=== PATIENT | male | born 1980 | race Caucasian/White ===

== ENCOUNTER 2020-07-10 15:42 | Inpatient (IN) | payer BC ==
[2020-07-10] MEDS ORDERED: LORazepam 2 MG/ML INJ IV PRN ×3 (16:08)
[2020-07-10] MEDS ORDERED: THIAMINE 100 MG/ML 2 ML VIAL IM STA (16:08)
[2020-07-10] MEDS ORDERED: SODIUM CHLORIDE 0.9% 1,000 ML IV ONE (16:08)
[2020-07-10] MEDS ORDERED: ACETAMINOPHEN TAB 325 MG TAB PO STA (16:17)
[2020-07-10] MEDS: THIAMINE 100 MG TAB PO SCH (16:29)
--- NOTE | 2020-07-10 16:56 | CT ---
EXAMINATION TYPE: CT brain temo baig DATE OF EXAM: 07/10/2020 COMPARISON: None HISTORY: Seizure, head injury CT DLP: 1543.7 mGycm Automated exposure control for dose reduction was used. The ventricles and sulci appear normal. There is no mass effect nor midline shift. There is no sign o f intracranial hemorrhage. There is some scalp soft tissue swelling over the right lateral frontal jose ne with laceration deformity. Skull base is intact. Cervical vertebra have normal alignment. There is some narrowing at C5-6 disc space with spurring. Fa cet joints are intact. There is mild cervical hypertrophic facet arthropathy on the left side at C4-5 . There is normal aeration of the mastoid sinuses. IMPRESSION: Mild spondylotic changes in the cervical spine. No fracture. Negative CT scan of the brain. Right frontal scalp hematoma.
[2020-07-10 16:58] LABS: Basophils # (A) 0.1 k/uL (0-0.2); Basophils % (A) 0 %; Eosinophils # (A) 0.2 k/uL (0-0.7); Eosinophils % (A) 1 %; HCT 46.4 % (39.0-53.0); HGB 16.4 gm/dL (13.0-17.5); Lymphocytes # (A) 1.5 k/uL (1.0-4.8); Lymphocytes % (A) 11 %; MCH 36.4 pg (25.0-35.0); MCHC 35.4 g/dL (31.0-37.0); MCV 102.9 fL (80.0-100.0); Macrocytosis Slight; Mean Platelet Volume 7.3; Monocytes # (A) 0.6 k/uL (0-1.0); Monocytes % (A) 4 %; Neutrophils # (A) 11.2 k/uL (1.3-7.7); Neutrophils % (A) 82 %; Platelet Count 391 k/uL (150-450); RBC 4.51 m/uL (4.30-5.90); RDW 13.1 % (11.5-15.5); WBC 13.7 k/uL (3.8-10.6)
[2020-07-10 17:08] LABS: ALT 97 U/L (4-49); AST 53 U/L (17-59); African American GFR (CKD) >90 (>60 ml/min/1.73 sqM); Albumin 4.4 g/dL (3.5-5.0); Alcohol <10 mg/dL; Alkaline Phosphatase 101 U/L (38-126); Anion Gap 5 mmol/L; Blood Urea Nitrogen 9 mg/dL (9-20); Calcium 10.3 mg/dL (8.4-10.2); Carbon Dioxide 30 mmol/L (22-30); Chloride 102 mmol/L (98-107); Glucose 102 mg/dL (74-99); Magnesium 1.9 mg/dL (1.6-2.3); Non-African American GFR(CKD) >90 (>60 ml/min/1.73 sqM); Potassium 4.7 mmol/L (3.5-5.1); Sodium 137 mmol/L (137-145); Total Bilirubin 0.4 mg/dL (0.2-1.3); Total Protein 7.1 g/dL (6.3-8.2)
[2020-07-10] MEDS ORDERED: LIDOCAINE 1% INJ 10MG/ML (20 ML MDV) SQ ONE (17:19)
--- NOTE | 2020-07-10 18:05 | ED ---
Seizure HPI - General Chief Complaint: Seizure Stated Complaint: seizure,fall Source: EMS Mode of arrival: EMS Limitations: no limitations - History of Present Illness Initial Comments: Patient is a 40-year-old male presents emergency department from [facility]. It was reported that the patient had a seizure outside of the facility. He has had a history of alcohol abuse. Normally drinks a pint every other day. Patient has been at [facility] for the past 4 days and states his last drink was just previous to entering rehab. He has never attempted sobriety before. Reports that here members being inside the facility today. They do have him on BuSpar for withdrawals. States that yesterday this medication made him dizzy. Reportedly was given this medication again today. He does not remember walking outside that at some point the patient did, likely to smoke a cigarette. It was reported that the patient began seizing and fell to the ground. Seizure activity lasted several minutes. The patient did hit his head on gravel. EMS arrived and found the patient postictal. He did not bite his tongue. There is no loss of bowel or bladder function. Patient denies previous history of seizure disorder. No history of alcohol withdrawal seizures. Patient is c urrently admitting to headache. Large laceration noted to the results of the patient's head. Denies any neck pain. No visual changes. Denies any numbness, tingling or weakness in his upper or lower extremities. Other alleviating, precipitating modifying factors - Related Data Home Medications Medication Instructions Recorded Confirmed Buspar (Unknown Strength) 1 dose PO BID 07/10/20 07/10/20 Dextroamphetamine/Amphetamine 20 mg PO TID 07/10/20 07/10/20 [Adderall] buPROPion [Wellbutrin] 150 mg PO BID 07/10/20 07/10/20 clonazePAM [KlonoPIN] 0.5 mg PO DAILY PRN 07/10/20 07/10/20 Allergies Allergy/AdvReac Type Severity Reaction Status Date / Time No Known Allergies Allergy Unverified 07/10/20 18:02 Review of Systems ROS Statement: Those systems with pertinent positive or pertinent negative responses have been documented in the HPI. ROS Other: All systems not noted in ROS Statement are negative. Past Medical History Past Medical History: No Reported History History of Any Multi-Drug Resistant Organisms: None Reported Past Surgical History: Cholecystectomy Additional Past Surgical History / Comment(s): left wrist surgery, right hand surgery, Past Psychological History: ADD/ADHD, Anxiety Smoking Status: Current every day smoker Past Alcohol Use History: Occasional Past Drug Use History: Marijuana General Exam Limitations: no limitations Course Vital Signs 07/10/20 07/10/20 07/10/20 15:49 17:01 17:46 Temperature 98.6 F Pulse Rate 98 97 82 Respiratory 18 18 16 Rate Blood Pressure 149/95 143/91 134/86 O2 Sat by Pulse 95 98 95 Oximetry Medical Decision Making - Medical Decision Making Upon arrival patient's placed into room 8. A thorough history of physical exam was performed. Patient is immediately placed on serial protocol. Laboratory studies are obtained and the patient went for CT of his head and cervical spine. Laboratory studies are reviewed. CT demonstrates no acute intracranial findings. No acute cervical fractures. Patient's right temporal laceration is repaired using 5, 6-0 simple interrupted nylon sutures. There was good approximation of the skin. Patient is instructed that he needs to have the sutures removed in 7 days. I did recommend hospitalization as the patient cannot go back to rehab because of this withdrawal seizure. We'll keep the patient overnight on CIWA protocol. Patient has had no further seizure activity in the emergency department. Patient did agree to this and was transported to floor in stable condition - Lab Data Result diagrams: 07/10/20 Unknown 07/10/20 17:02 Lab Results 07/10/20 Range/Units 17:02 Sodium 137 (137-145) mmol/L Potassium 4.7 (3.5-5.1) mmol/L Chloride 102 (98-107) mmol/L Carbon Dioxide 30 (22-30) mmol/L Anion Gap 5 mmol/L BUN 9 (9-20) mg/dL Creatinine 0.88 (0.66-1.25) mg/dL Est GFR (CKD-EPI)AfAm >90 (>60 ml/min/1.73 sqM) Est GFR (CKD-EPI)NonAf >90 (>60 ml/min/1.73 sqM) Glucose 102 H (74-99) mg/dL Calcium 10.3 H (8.4-10.2) mg/dL Magnesium 1.9 (1.6-2.3) mg/dL Total Bilirubin 0.4 (0.2-1.3) mg/dL AST 53 (17-59) U/L ALT 97 H (4-49) U/L Alkaline Phosphatase 101 (38-126) U/L Total Protein 7.1 (6.3-8.2) g/dL Albumin 4.4 (3.5-5.0) g/dL Serum Alcohol <10 mg/dL - EKG Data EKG Comments: EKG demonstrates a normal sinus rhythm with ventricular rate of 89. CO interval 174. QRS 94. QTC 420. No acute ST segment elevations or depressions concerning for ischemic changes Disposition Clinical Impression: Alcohol withdrawal seizure Disposition: ADMITTED IP TO THIS HOSP Condition: Stable Is patient prescribed a controlled substance at d/c from ED?: No Decision to Admit Reason: Admit from EC Decision Date: 07/10/20 Decision Time: 18:05
[2020-07-10] MEDS ORDERED: NALOXONE 0.4 MG/ML 1 ML VIAL IV PRN (18:07)
[2020-07-10] MEDS ORDERED: HYDROcodone/APAP 7.5-325MG 1 EACH TAB PO ONE (18:10)
[2020-07-10] MEDS: IBUPROFEN 400 MG TAB PO PRN (21:50)
[2020-07-10] MEDS: NICOTINE 21MG/24HR PATCH TRANSDERM SCH (21:50)
[2020-07-10] MEDS: buPROPion 75 MG TAB PO SCH (21:51)
[2020-07-10] MEDS: SODIUM CHLORIDE 0.9% 1,000 ML IV SCH (21:51)
--- NOTE | 2020-07-11 00:28 | P.HPIM ---
History of Present Illness H&P Date: 07/10/20 Chief Complaint: seizure 40 year old male with alcohol dependance and abuse patient comes in from [facility] , where he was admitted one week ago , for alcohol abuse, his last alcohol drink he claims to be more than 10 days ago. he claims that he had one episode of seizure in the past about 1 year ago, and was thought to be due to a medicine that he used to take for headaches Ten[place]. which he stopped then , but he was taking again now for his headaches. he denies having withdrawal symptoms from alcohol while at [facility] patient does not recall the event, he regained consciousness en route with EMS. denies loss of bladder or bowel control, denies tongue biting. but it seems that he felll from standing position and has sustained a head injury and cut to his scalp. patient denies any drug abuse, but admits to alcohol abuse. he admits to smoking cigarettes. he denies any fever, chills, URI symptoms , GI changes, or urinary symptoms. he currently denies any vision changes, or focal neuro deficits. in the ED blood work showed macrocytosis and mild hypercalcemia, leukocytosis , and slightly elevated liver enzymes. CT of the head showd no acute intracranial pathology, except for the scalp hematoma Review of Systems Pertinent positives as noted in HPI. All other systems were reviewed and are negative Past Medical History Past Medical History: No Reported History, Seizure Disorder Additional Past Medical History / Comment(s): hx of a seizure one year ago History of Any Multi-Drug Resistant Organisms: None Reported Past Surgical History: Cholecystectomy Additional Past Surgical History / Comment(s): left wrist surgery, right hand surgery Past Anesthesia/Blood Transfusion Reactions: No Reported Reaction Past Psychological History: ADD/ADHD, Anxiety Smoking Status: Current every day smoker Past Alcohol Use History: Occasional Additional Past Alcohol Use History / Comment(s): one pack a day Past Drug Use History: Marijuana - Past Family History family Family Medical History: No Reported History Medications and Allergies Home Medications Medication Instructions Recorded Confirmed Type Buspar (Unknown Strength) 1 dose PO BID 07/10/20 07/10/20 History Dextroamphetamine/Amphetamine 20 mg PO TID 07/10/20 07/10/20 History [Adderall] buPROPion [Wellbutrin] 150 mg PO BID 07/10/20 07/10/20 History clonazePAM [KlonoPIN] 0.5 mg PO DAILY PRN 07/10/20 07/10/20 History Allergies Allergy/AdvReac Type Severity Reaction Status Date / Time No Known Allergies Allergy Unverified 07/10/20 18:02 Physical Exam Vitals: Vital Signs Temp Pulse Pulse Resp BP BP Pulse Ox 07/10/20 20:24 92 18 154/86 95 07/10/20 17:46 82 16 134/86 95 07/10/20 17:01 97 18 143/91 98 07/10/20 15:49 98.6 F 98 18 149/95 95 Intake and Output 07/10/20 07/10/20 07/10/20 06:59 14:59 22:59 Other: Weight 104.326 kg Constitutional: No acute distress, conversant, pleasant Eyes: Anicteric sclerae, moist conjunctiva, Pupils equal round reactive to light ENMT: NC/ wound over the right adventist area 2.5 inches s/p suturing no swelling or bruising Oropharynx clear, no erythema, or exudates Neck: Supple, FROM, no masses, or JVD No carotid bruits No thyromegaly Lungs: Clear to auscultation Clear to percussion Normal respiratory effort, no accessory muscle use Cardiovascular: Heart regular in rate and rhythm, No murmurs, gallops, or rubs No peripheral edema Abdominal: Soft Nontender, no guarding, rebound or rigidity Abdomen moving with respiration Normoactive bowel sounds No hepatomegaly, No splenomegaly No palpable mass No abdominal wall hernia noted Skin: Normal temperature, tone, texture, turgor No induration No subcutaneous nodules No rash, lesions No ulcers Extremities: No digital cyanosis No clubbing Pedal pulses intact and symmetrical Radial pulses intact and symmetrical No calf tenderness Psychiatric: Alert and oriented to person, place and time Appropriate affect fair judgement Neuro Muscles Strength 5/5 in all 4 extremities Sensation to light touch grossly present throughout Cranial nerves II-XII grossly intact No focal sensory deficits Lymphatics: no palpable cervical or supraclavicular , or inguinal lymph nodes Results CBC & Chem 7: 07/10/20 Unknown 07/10/20 17:02 Labs: Abnormal Lab Results - Last 24 Hours (Table) 07/10/20 07/10/20 Range/Units 17:02 Unknown WBC 13.7 H (3.8-10.6) k/uL MCV 102.9 H (80.0-100.0) fL MCH 36.4 H (25.0-35.0) pg Neutrophils # 11.2 H (1.3-7.7) k/uL Glucose 102 H (74-99) mg/dL Calcium 10.3 H (8.4-10.2) mg/dL ALT 97 H (4-49) U/L Thrombosis Risk Factor Assmnt - Choose All That Apply Any of the Below Risk Factors Present?: No Other Risk Factors: No Other congenital or acquired thrombophilia - If yes, enter type in comment: No Thrombosis Risk Factor Assessment Level: Very Low Risk Assessment and Plan Assessment: seizure episode head injury with wound over the right adventist secondary to falling due to seizure alcohol abuse mild acute alcoholic hepatitis headache seizure precautions EEG neuro consult counseled to avoid driving or running heavy machinery , or to swimming without supervision , per [place] state law pain control wound care, remove sutures in 10 days monitor for alcohol withdrawal syndrome macrocytosis without anemia secondary to alcohol abuse thiamine counseled to abstainfrom alcohol leukocytosis without focus of infection , most likely reactive monitor for any fever mild hypercalcemia repeat BMP in AM CODE STATUS:full code DVT prophylaxis: mechanical Discussed with: Patient, ER, RN Anticipated length of stay < than [address]: [facility] A total of 65 minutes was spent on the care of this complex patient more than 50% of the time was spent in counseling and care coordination.
[2020-07-11] MEDS: SODIUM CHLORIDE 0.9% 1,000 ML IV SCH ×4 (03:51→23:38)
[2020-07-11] MEDS: HYDROcodone/APAP 5-325MG 1 EACH TAB PO PRN ×2 (03:57)
[2020-07-11] MEDS: THIAMINE 100 MG TAB PO SCH ×2 (06:53→16:27)
[2020-07-11 07:25] LABS: Basophils # (A) 0.1 k/uL (0-0.2); Basophils % (A) 1 %; Eosinophils # (A) 0.2 k/uL (0-0.7); Eosinophils % (A) 2 %; HCT 44.5 % (39.0-53.0); HGB 15.2 gm/dL (13.0-17.5); Lymphocytes # (A) 3.2 k/uL (1.0-4.8); Lymphocytes % (A) 29 %; MCH 35.3 pg (25.0-35.0); MCV 103.6 fL (80.0-100.0); Macrocytosis Slight; Mean Platelet Volume 7.2; Monocytes # (A) 0.6 k/uL (0-1.0); Monocytes % (A) 6 %; Neutrophils # (A) 6.9 k/uL (1.3-7.7); Neutrophils % (A) 62 %; Platelet Count 330 k/uL (150-450); RDW 13.1 % (11.5-15.5); WBC 11.2 k/uL (3.8-10.6)
[2020-07-11 07:44] LABS: African American GFR (CKD) >90 (>60 ml/min/1.73 sqM); Anion Gap 2 mmol/L; Blood Urea Nitrogen 6 mg/dL (9-20); Carbon Dioxide 30 mmol/L (22-30); Chloride 106 mmol/L (98-107); Glucose 94 mg/dL (74-99); Non-African American GFR(CKD) >90 (>60 ml/min/1.73 sqM); Sodium 138 mmol/L (137-145)
[2020-07-11] MEDS: buPROPion 75 MG TAB PO SCH ×2 (09:14→20:51)
[2020-07-11] MEDS: IBUPROFEN 400 MG TAB PO PRN ×2 (09:28→16:26)
[2020-07-11] MEDS: NICOTINE 21MG/24HR PATCH TRANSDERM SCH (09:28)
[2020-07-11] MEDS: clonazePAM 0.5 MG TAB PO PRN ×2 (09:28→20:51)
--- NOTE | 2020-07-11 10:25 | P.PN ---
Subjective Progress Note Date: 07/11/20 Principal diagnosis: CC: Seizure Patient is complaining of headache at the site of his laceration. He denies any alcohol withdrawal symptoms. Objective - Vital Signs Vital signs: Vital Signs Temp 98.6 F 07/10/20 15:49 Pulse 75 07/11/20 03:26 Resp 16 07/11/20 03:26 BP 138/72 07/11/20 03:26 Pulse Ox 96 07/11/20 03:26 Intake & Output 07/10/20 07/11/20 07/11/20 18:59 06:59 18:59 Weight 104.326 kg 103.5 kg Other: Voiding Method Toilet # Voids 1 - Exam General examination - Alert and Oriented 3 in NAD HEENT: Laceration on the right temporal head with sutures Heart - + S1S2 no murmurs Lungs - Clear to auscultation Abdomen soft NT ND +ve BS Extremities - No edema VICE PRESIDENT REGULATORY - Moving all 4 extremities spontaneously Psych - Calm and cooperative - Labs CBC & Chem 7: 07/11/20 06:57 07/11/20 06:57 Labs: Abnormal Lab Results - Last 24 Hours (Table) 07/10/20 07/10/20 07/11/20 Range/Units 17:02 Unknown 06:57 WBC 13.7 H 11.2 H (3.8-10.6) k/uL MCV 102.9 H 103.6 H (80.0-100.0) fL MCH 36.4 H 35.3 H (25.0-35.0) pg Neutrophils # 11.2 H (1.3-7.7) k/uL BUN (9-20) mg/dL Glucose 102 H (74-99) mg/dL Calcium 10.3 H (8.4-10.2) mg/dL ALT 97 H (4-49) U/L 07/11/20 Range/Units 06:57 WBC (3.8-10.6) k/uL MCV (80.0-100.0) fL MCH (25.0-35.0) pg Neutrophils # (1.3-7.7) k/uL BUN 6 L (9-20) mg/dL Glucose (74-99) mg/dL Calcium (8.4-10.2) mg/dL ALT (4-49) U/L Assessment and Plan Assessment: #Witnessed seizure at [facility] likely due to benzodiazepine withdrawal -Patient states that he quit drinking more than 10 days ago -Patient states that he was on clonazepam prior to going to rehab. Patient says that the only medicine he got at rehab was BuSpar and he did not get any of his clonazepam or other benzodiazepines. -Neurology consult -EEG -Seizure precautions -DC back to [facility] when medically stable #Head injury with laceration on the right temporal -Laceration was sutured in the ED. -Structures will need to be removed in 10 days -Pain control with ibuprofen and Tylenol #Alcohol abuse -CIWA #Mild alcoholic hepatitis -Trend CMP #Macrocytosis without anemia -Stable. #Leukocytosis likely reactive -Monitor for signs and symptoms of infection -Improving CODE STATUS:full code DVT prophylaxis: mechanical Anticipated length of stay < than [address]: [facility]
[2020-07-11] MEDS: ACETAMINOPHEN TAB 325 MG TAB PO PRN ×2 (12:17→20:51)
[2020-07-11] MEDS: KETOROLAC 15 MG/ML 1 ML VIAL IVP PRN ×2 (17:53→23:35)
[2020-07-11] MEDS ORDERED: levETIRAcetam IV 1,000 MG in SALINE 1 100ML.BAG IVPB PRN (19:27)
[2020-07-12] MEDS: KETOROLAC 15 MG/ML 1 ML VIAL IVP PRN ×3 (06:24→20:26)
[2020-07-12] MEDS: THIAMINE 100 MG TAB PO SCH ×2 (06:24→17:51)
[2020-07-12 07:30] LABS: Basophils # (A) 0.1 k/uL (0-0.2); Basophils % (A) 1 %; Eosinophils # (A) 0.3 k/uL (0-0.7); Eosinophils % (A) 3 %; HCT 46.4 % (39.0-53.0); HGB 15.8 gm/dL (13.0-17.5); Lymphocytes # (A) 2.7 k/uL (1.0-4.8); Lymphocytes % (A) 31 %; MCH 35.2 pg (25.0-35.0); MCHC 34.1 g/dL (31.0-37.0); MCV 103.3 fL (80.0-100.0); Macrocytosis Slight; Mean Platelet Volume 7.5; Monocytes # (A) 0.5 k/uL (0-1.0); Monocytes % (A) 6 %; Neutrophils # (A) 5.2 k/uL (1.3-7.7); Neutrophils % (A) 59 %; Platelet Count 343 k/uL (150-450); RBC 4.49 m/uL (4.30-5.90); WBC 8.9 k/uL (3.8-10.6)
[2020-07-12 07:41] LABS: ALT 124 U/L (4-49); AST 62 U/L (17-59); African American GFR (CKD) >90 (>60 ml/min/1.73 sqM); Albumin 4.2 g/dL (3.5-5.0); Alkaline Phosphatase 97 U/L (38-126); Anion Gap 5 mmol/L; Blood Urea Nitrogen 10 mg/dL (9-20); Calcium 9.4 mg/dL (8.4-10.2); Carbon Dioxide 27 mmol/L (22-30); Chloride 106 mmol/L (98-107); Glucose 96 mg/dL (74-99); Non-African American GFR(CKD) >90 (>60 ml/min/1.73 sqM); Potassium 4.1 mmol/L (3.5-5.1); Sodium 138 mmol/L (137-145); Total Bilirubin 0.5 mg/dL (0.2-1.3); Total Protein 6.8 g/dL (6.3-8.2)
[2020-07-12] MEDS: buPROPion 75 MG TAB PO SCH (10:53)
[2020-07-12] MEDS: NICOTINE 21MG/24HR PATCH TRANSDERM SCH (10:53)
--- NOTE | 2020-07-12 12:14 | P.PN ---
Subjective Progress Note Date: 07/12/20 Principal diagnosis: No new complaints today. Ongoing seizure work up with EEG, MRI pending. Objective - Vital Signs Vital signs: Vital Signs Temp 98.1 F 07/11/20 20:00 Pulse 75 07/12/20 08:00 Resp 16 07/12/20 03:56 BP 123/68 07/12/20 03:56 Pulse Ox 95 07/12/20 03:56 Intake & Output 07/11/20 07/12/20 07/12/20 18:59 06:59 18:59 Intake Total 600 240 Balance 600 240 Weight 103.7 kg Intake: Oral 600 240 Other: Voiding Method Toilet Toilet # Voids 2 1 2 - Exam Gen: awake, alert HEENT: normocephalic, atraumatic, good hearing acuity, moist mucous membranes Resp: good air exchange, breathing comfortably with no accessory muscle use CVS: good distal perfusion x 4, GI: soft, NTTP, ND : no SPT, no CVAT, severino catheter not present MSK: no pitting edema, no clubbing Neuro: non-focal, moving all extremities Psych: cooperative, euthymic mood - Labs CBC & Chem 7: 07/12/20 07:11 07/12/20 07:11 Labs: Abnormal Lab Results - Last 24 Hours (Table) 07/12/20 07/12/20 Range/Units 07:11 07:11 MCV 103.3 H (80.0-100.0) fL MCH 35.2 H (25.0-35.0) pg AST 62 H (17-59) U/L ALT 124 H (4-49) U/L Assessment and Plan Assessment: #Witnessed seizure at [facility] likely due to benzodiazepine withdrawal -Patient states that he quit drinking more than 10 days ago -Patient states that he was on clonazepam prior to going to rehab. Patient says that the only medicine he got at rehab was BuSpar and he did not get any of his clonazepam or other benzodiazepines. -Neurology consult -EEG, MRI pending -Seizure precautions -DC back to [facility] when medically stable #Head injury with laceration on the right temporal -Laceration was sutured in the ED. -Structures will need to be removed in 10 days -Pain control with ibuprofen and Tylenol #Alcohol abuse -CIWA #Mild alcoholic hepatitis -Trend CMP #Macrocytosis without anemia -Stable. #Leukocytosis likely reactive -Monitor for signs and symptoms of infection -Improving CODE STATUS:full code DVT prophylaxis: mechanical Anticipated length of stay < than [address]: [facility]
--- NOTE | 2020-07-12 12:32 | EEG ---
ELECTROENCEPHALOGRAM REPORT DATE OF SERVICE: 07/12/2020 PREAMBLE: This is a 40-year-old male with a second seizure. The first seizure was a year ago. This study is performed to evaluate for any epileptiform activity. EEG FINDINGS: This is a 21 channel routine EEG recording in a patient utilizing 10/20 international system with referential and bipolar montages. The background consists of well developed, well regulated, moderate voltage activity in 9-10 hertz alpha. Background is posterior dominant and reactive to eye opening and closing. Frequent eye movement artifacts were seen. Mild drowsiness was seen but deeper stages of sleep were not attained. Photic driving response was not seen. No definitive focal or generalized epileptiform activity was seen. IMPRESSION: This is a normal awake and drowsy EEG. No focal, lateralized or epileptiform activity was seen. If your suspicion for seizures is high, recommend prolonged, sleep-deprived or a 24 hours ambulatory EEG. MMODL / IJN: [id number] /
[2020-07-12] MEDS: SODIUM CHLORIDE 0.9% 1,000 ML IV SCH ×3 (12:51→23:54)
[2020-07-12] MEDS: clonazePAM 0.5 MG TAB PO PRN (12:52)
--- NOTE | 2020-07-12 12:52 | P.CNNES ---
History of Present Illness Consult date: 07/12/20 Requesting physician: Mallory Reyes Reason for Consult: Seizure History of Present Illness: Patient is a 40-year-old male came to the hospital on 07/10/2020 at 3:42 PM by ambulance from [place] for seizure outside the facility. He has history of alcohol abuse. In the electronic medical records it is reported that he normally drinks a pint every other day. However patient tells me that he drinks a pint of vodka about once or twice a week, (or 5-6 times a month). He says that his father wanted him to undergo alcohol rehab, as his dad does not drink alcohol at all. Patient went into inpatient alcohol rehab on , 07/08/2020. Patient states that he was standing outside and next thing he remembers is waking up in the back of the ambulance. He had no warning prior to the seizures. He suffered from laceration on the right temporal region. Did not bite his tongue or lost control of urine. When he arrived, blood pressure was 149/95, pulse 98, temperature 98.6. Per EMS flow sheet when they arrived he was supine on the ground outside, bleeding from the head. It was reported that patient had a seizure and fell to the ground hitting his head. Seizure lasted less than a minute. His blood pressure at the scene was 156/97 pulse rate 116 and saturation 94%. Blood glucose 99. Patient's blood test shows a BBC 13.7 hemoglobin 16.4, elevated MCV 102.9. Platelets are 391. Chem-7 is normal. Calcium 10.3, repeat is now normal. AST is normal, ALT 97. Blood alcohol < 10. CT head was normal. Right frontal scalp hematoma. CT of the cervical spine showed mild spondylotic changes of the cervical spine. No fracture. Patient does take Adderall 20 mg 3 times a day, clonazepam 0.5 mg daily when necessary, Wellbutrin 150 mg twice a day and BuSpar. Urine drug screen was not tested in the ER. Patient has been on Klonopin 0.5 mg daily for last 3 months. Patient states that the last dose he took of Klonopin was on , 07/08/2020 at 11 AM, before he went to alcohol rehab at [place] (48 hours before seizure). He has been on Wellbutrin for the last 4 months. Also takes Adderall. Patient apparently had a grand mal seizure, which was more intense in 0. He was admitted to [facility], where he underwent EEG which was normal. He had a MRI of the brain on 08/09/2019, which revealed small focus of abnormal signal in the left frontal lobe and a developmental venous anomaly. He was recommended to have a follow-up MRI of brain with and without contrast in 3 months. Patient states that around that time pandemic started and he could not schedule his MRI. Patient apparently was discharged on Keppra, which he claims took for couple months and then stopped taking it. Patient also tells me that before this seizure in August 2019, he had hurt his head at work and was given tramadol, which he took the night before the seizure. Review of Systems Complains of headache where he had scalp laceration. Denies any tongue bite. Denies any hoarseness, sore throat, dysphagia. Denies any chest pain abdominal pain nausea vomiting diarrhea. Denies any palpitations. All other review of systems unremarkable. Past Medical History Past Medical History: No Reported History, Seizure Disorder Additional Past Medical History / Comment(s): hx of a seizure one year ago History of Any Multi-Drug Resistant Organisms: None Reported Past Surgical History: Cholecystectomy Additional Past Surgical History / Comment(s): left wrist surgery, right hand surgery Past Anesthesia/Blood Transfusion Reactions: No Reported Reaction Past Psychological History: ADD/ADHD, Anxiety Smoking Status: Current every day smoker Past Alcohol Use History: Occasional Additional Past Alcohol Use History / Comment(s): one pack a day Past Drug Use History: Marijuana - Past Family History family Family Medical History: No Reported History Medications and Allergies Home Medications Medication Instructions Recorded Confirmed Type Buspar (Unknown Strength) 1 dose PO BID 07/10/20 07/10/20 History Dextroamphetamine/Amphetamine 20 mg PO TID 07/10/20 07/10/20 History [Adderall] buPROPion [Wellbutrin] 150 mg PO BID 07/10/20 07/10/20 History clonazePAM [KlonoPIN] 0.5 mg PO DAILY PRN 07/10/20 07/10/20 History Allergies Allergy/AdvReac Type Severity Reaction Status Date / Time No Known Allergies Allergy Unverified 07/10/20 18:02 Physical Examination - Vital Signs Vital Signs: Vital Signs Temp Pulse Resp BP Pulse Ox 07/12/20 03:56 70 16 123/68 95 07/12/20 02:00 77 16 07/12/20 00:00 77 16 143/80 95 07/11/20 20:00 98.1 F 94 18 133/83 94 L 07/11/20 16:00 98.4 F 74 16 135/88 96 07/11/20 14:00 84 18 07/11/20 12:00 98.4 F 84 18 143/83 97 Intake and Output 07/11/20 07/12/20 07/12/20 22:59 06:59 14:59 Intake Total 240 240 Balance 240 240 Intake: Oral 240 240 Other: Voiding Method Toilet Toilet # Voids 2 1 2 Weight 103.7 kg On examination patient is young male, in no distress. Patient is alert and awake oriented to time place and person. Speech and language function s are normal. Attention, concentration and fund of knowledge is adequate. On cranial nerve examination pupils are round and reactive to light, visual rea are full on confrontation, extraocular muscles are intact with no nystagmus. Face is symmetric, tongue protrudes to the midline. Palatal elevation and sensation normal. Hearing and shoulder shrug normal. No evidence of tongue laceration. Facial sensations normal. On muscle strength testing there is no pronator drift and the strength is normal in arms and legs distally and proximally reflexes are 1+ and plantars downgoing. Sensory touch is equal. No ataxia for [id number] or awkj-ep-[id number] testing. Tone and bulk of muscles nor mal. Gait deferred. No carotid bruit or murmur, chest is clear, S1 and S2 audible. Abdomen soft nontender. Peripheral pulses present. No edema. Results - Laboratory Findings CBC and BMP: 07/12/20 07:11 07/12/20 07:11 Abnormal Lab Findings: Abnormal Labs 07/10/20 07/10/20 07/11/20 17:02 Unknown 06:57 WBC 13.7 H 11.2 H MCV 102.9 H 103.6 H MCH 36.4 H 35.3 H Neutrophils # 11.2 H BUN Glucose 102 H Calcium 10.3 H AST ALT 97 H 07/11/20 07/12/20 07/12/20 06:57 07:11 07:11 WBC MCV 103.3 H MCH 35.2 H Neutrophils # BUN 6 L Glucose Calcium AST 62 H ALT 124 H Assessment and Plan Assessment: * Patient presented with a seizure (second seizure of his lifetime), probably provoked due multiple factors as mentioned below. He probably had Klonopin withdrawal seizure, and perhaps because of use of Wellbutrin, as Wellbutrin can lower seizure threshold. Alcohol withdrawal and perhaps use of Adderall, may also have contributed to seizure. * History of new onset seizure on 08/09/2019, which was possibly troll due to tramadol. 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 * History of tobacco, alcohol use. Plan: * Patient underwent EEG today which was normal. * We will repeat MRI of the brain with and without contrast to follow up on the left frontal focus/developmental anomaly, that was recommended by his previous neurologist at [facility]. * As this seizure was probably provoked, would hold off on antiepileptic medication. * We will discuss further after MRI of the brain is completed, if patient will be a candidate for antiepileptic medication.
[2020-07-13] MEDS: clonazePAM 0.5 MG TAB PO PRN (03:50)
[2020-07-13 04:27] VITALS: RESP 20
[2020-07-13] MEDS: THIAMINE 100 MG TAB PO SCH ×2 (06:33→17:42)
[2020-07-13] MEDS: KETOROLAC 15 MG/ML 1 ML VIAL IVP PRN (08:53)
[2020-07-13] MEDS: NICOTINE 21MG/24HR PATCH TRANSDERM SCH (08:53)
[2020-07-13 11:17] VITALS: TEMP 97.9
[2020-07-13] MEDS: SODIUM CHLORIDE 0.9% 1,000 ML IV SCH (11:19)
[2020-07-13 13:09] VITALS: BP 158/80
[2020-07-13] MEDS: ACETAMINOPHEN TAB 325 MG TAB PO PRN (13:10)
[2020-07-13] MEDS ORDERED: BUTALB/APAP/CAFF 50-325-40MG TAB PO PRN (14:28)
--- NOTE | 2020-07-13 14:30 | P.PN ---
Subjective Progress Note Date: 07/13/20 Patient is feeling fine. No further seizures. Complains of headaches. Patient does have history of migraines occur 3 times a week. Patient has previously tried Topamax which did not work. Wants Fioricet. Objective - Vital Signs Vital signs: Vital Signs Temp 97.9 F 07/13/20 08:00 Pulse 84 07/13/20 12:00 Resp 20 07/13/20 04:00 BP 158/80 07/13/20 12:00 Pulse Ox 96 07/13/20 08:00 Intake & Output 07/12/20 07/13/20 07/13/20 18:59 06:59 18:59 Intake Total 710 340 Balance 710 340 Weight 102 kg Intake: Intake, IV Titration 130 Amount Sodium Chloride 0.9% 1, 130 000 ml @ 130 mls/hr IV . [id number] [facility] Rx#:[id number] Oral 580 340 Other: Voiding Method Toilet # Voids 2 2 - Exam Completely normal, nonfocal. Mentation normal. - Labs CBC & Chem 7: 07/12/20 07:11 07/12/20 07:11 Assessment and Plan Assessment: * Patient presented with a seizure (second seizure of his lifetime), probably provoked due multiple factors as mentioned below. He probably had Klonopin withdrawal seizure, and perhaps because of use of Wellbutrin, as Wellbutrin can lower seizure threshold. Alcohol withdrawal and perhaps use of Adderall, may also have contributed to seizure. * History of new onset seizure on 08/09/2019, which was possibly troll due to tramadol. 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 * History of tobacco, alcohol use. * Migraine headaches. Plan: * EEG was normal. * Await MRI of the brain with and without contrast to follow up on the left frontal focus/developmental anomaly, that was recommended by his previous neurologist at [facility]. * We will discuss further after MRI of the brain is completed, if patient will be a candidate for antiepileptic medication. * Fioricet for headache. * Suggest patient follow up with a neurologist regarding seizure disorder. May consider prolonged EEG testing. * Patient informed of [place] state law of no driving unless seizure free for 6 months, climbing ladders, operating dangerous machinery or unsupervised swimming. Addendum: MRI of the brain with and without contrast. It again revealed abnormal nonenhancing signal in the left frontal cortical region. Exact cause is uncertain. Uncertain if represents a low-grade glioma. Official report is pend ing. Official report, nonspecific dural enhancement and focus of abnormal signal toward the convexity possibly related to some focal encephalomalacia, comparison with old MRI may be of benefit to assess for any interval change. Patient will be discharged on Zonegran 100 mg daily. Hopefully this will help preventing seizures and migraines. Recommend patient to follow up with neurologist in 2-4 weeks for management of his seizure disorder Patient probably will need surveillance MRI of the brain with and without contrast for the abnormal lesion noted in the left frontal region. Neurologically clear for discharge.
--- NOTE | 2020-07-13 16:39 | P.DS ---
Providers Date of admission: 07/10/20 18:07 Expected date of discharge: 07/13/20 Attending physician: Karsten Gabriel MD Consults: 07/11/20 00:14 Consult Physician Routine Consulting Provider: Damion Richardson Consult Reason/Comments: seizure Do you want consulting provider notified?: Yes, Notify in am Primary care physician: Stated None Hospital Course: #Witnessed seizure at [facility] likely due to benzodiazepine withdrawal #Head injury with laceration on the right temporal #Alcohol abuse #Mild alcoholic hepatitis #Macrocytosis without anemia #Leukocytosis likely reactive 40 year old man with history of alcohol abuse currently in rehab at [facility] presented with grand mal seizure. Patient was admitted for further workup and had EEG and MRI. EEG was negative for epileptic focus, but MRI did demonstrate known structural abnormality in the brain which requires follow up with NSGY outpatient. Neurology followed along and recommended discontinuing wellbutrin as it lowers seizure threshold, as well as starting patient on an AED. Pt was discharged in stable condition back to inpatient alcohol rehab. Head lac was sutured in the ED and patient will see PCP for suture removal. Patient Condition at Discharge: Good Plan - Discharge Summary Discharge Rx Participant: No New Discharge Prescriptions: Continue Dextroamphetamine/Amphetamine [Adderall] 20 mg PO TID clonazePAM [KlonoPIN] 0.5 mg PO DAILY PRN PRN Reason: Anxiety Buspar (Unknown Strength) 1 dose PO BID Discontinued buPROPion [Wellbutrin] 150 mg PO BID Discharge Medication List Buspar (Unknown Strength) 1 dose PO BID 07/10/20 [History] Dextroamphetamine/Amphetamine [Adderall] 20 mg PO TID 07/10/20 [History] clonazePAM [KlonoPIN] 0.5 mg PO DAILY PRN 07/10/20 [History] Follow up Appointment(s)/Referral(s): None,Stated [Primary Care Provider] - 1-2 days Frankie Hebert MD [STAFF PHYSICIAN] - 1 Week Patient Instructions/Handouts: Abuse of Alcohol (DC), Alcohol Withdrawal (DC) Activity/Diet/Wound Care/Special Instructions: Please touch base with your PCP regarding starting on a different anti-depressan t as you are no longer safe in taking wellbutrin. You should not operate heavy machinery or drive until you are 6 months free of seizure activity per [place] law. Discharge Disposition: HOME SELF-CARE
--- NOTE | 2020-07-13 17:49 | MR ---
EXAMINATION TYPE: MR brain wo/w con DATE OF EXAM: 07/13/2020 COMPARISON: CT brain 07/10/2020 HISTORY: Seizure, fell and hit head, history of abnormal brain MRI TECHNIQUE: Multiplanar, multisequence images of the brain and brainstem is performed without and with IV contras t, utilizing 10 mL intravenous Gadavist . FINDINGS: Diffusion weighted images demonstrate no evidence of a recent infarct or other diffusion ab normality. There is no extra-axial fluid collection. Focus of hyperintensity present towards the co nvexity on the left on inversion recovery T2-weighted sequences shows low to intermediate signal on T 1-weighted images measuring approximately 11 mm, no enhancement. The ventricular system and cisternal spaces are normal in size and appearance. The brain volume is age appropriate. Midline structures demonstrate normal corpus callosum and pituitary, cervical medullary junction. Pi jennifer gland cyst noted incidentally. The craniocervical junction appears within normal limits. Post c ontrast images demonstrate dural enhancement. The dural venous sinuses appear patent. The visualized sinuses are clear and the globes are intact. IMPRESSION: Nonspecific dural enhancement and focus of abnormal signal towards the convexity possibly related to some focal encephalomalacia, comparison with old MRI may be of benefit to assess for any interval change.
[2020-07-13 18:09] VITALS: PULSE 85
== END 2020-07-13 18:23 | DRG 896 ==
LOC: EC 15:42 → 3SCARD 18:07
PROVIDERS: ADMIT Internal Medicine; ATTEND Internal Medicine
PROC: 0HQ1XZZ Repair Face Skin, External Approach (ICD-10-PCS; principal; 2020-07-10)
DX: F13.239 Sedative, hypnotic or anxiolytic dependence with withdrawal, unspecified (principal); Q28.3 Other malformations of cerebral vessels; F10.239 Alcohol dependence with withdrawal, unspecified; G40.409 Other generalized epilepsy and epileptic syndromes, not intractable, without status epilepticus; K70.10 Alcoholic hepatitis without ascites; S00.03XA Contusion of scalp, initial encounter; D75.89 Other specified diseases of blood and blood-forming organs; D72.829 Elevated white blood cell count, unspecified; E83.52 Hypercalcemia; Y90.0 Blood alcohol level of less than 20 mg/100 ml; S01.81XA Laceration without foreign body of other part of head, initial encounter; G43.909 Migraine, unspecified, not intractable, without status migrainosus; F41.9 Anxiety disorder, unspecified; F90.9 Attention-deficit hyperactivity disorder, unspecified type; F17.210 Nicotine dependence, cigarettes, uncomplicated; Z71.6 Tobacco abuse counseling; Z79.899 Other long term (current) drug therapy; Z90.49 Acquired absence of other specified parts of digestive tract; W19.XXXA Unspecified fall, initial encounter
CPT/HCPCS: 36415; 70450; 70553; 72125; 80048; 80053; 80320; 83735; 85025; 93005; 95816; 96361; 96372; 96374; 99285